=== PATIENT | female | born 1985 | race African-American/Black ===

== ENCOUNTER 2023-04-04 01:34 | Emergency (ER) | payer BC ==
[~2023-04-04] VITALS: Ht 172.7 cm; Wt 96.0 kg
[2023-04-04 02:00] VITALS: O2SAT 100
[2023-04-04] MEDS ORDERED: DEXAMETHASONE 10 MG/ML VIAL IM ONE (02:15)
[2023-04-04] MEDS ORDERED: ACETAMINOPHEN 325MG TABLET PO ONE (02:15)
[2023-04-04] MEDS ORDERED: DIAZEPAM 5 MG TABLET PO ONE (02:15)
[2023-04-04] MEDS ORDERED: CYCL10TA21 MT (03:59)
[2023-04-04 05:45] VITALS: BP 126/64; PULSE 87; RESP 20; TEMP 98.1
== END 2023-04-04 05:47 | disposition home or self-care (01) ==
LOC: ER 01:42
DX: M54.50 Low back pain, unspecified (principal)
CPT/HCPCS: 96372; 99283; J1100; Z7610